=== PATIENT | female | born 1955 | race Caucasian/White ===

== ENCOUNTER 2024-04-26 09:03 | Emergency (ER) | payer BC | END 2024-04-26 09:27 | disposition home or self-care (01) | LOC: VM.ED 09:03 | DX: K64.4 Residual hemorrhoidal skin tags (principal); I10 Essential (primary) hypertension; K21.9 Gastro-esophageal reflux disease without esophagitis; E66.9 Obesity, unspecified; Z79.899 Other long term (current) drug therapy; Z88.8 Allergy status to other drugs, medicaments and biological substances | CPT/HCPCS: 99283 ==